=== PATIENT | female | born 1935 | race African-American/Black ===

== ENCOUNTER 2016-11-11 10:15 | Emergency (ER) | payer OTHER ==
[~2016-11-11] VITALS: Ht 157.5 cm; Wt 74.8 kg
--- NOTE | ~2016-11-11 | EKG ---
[address] [place] [address] ELECTROCARDIOGRAM REPORT Name: NUBIA RAMIREZ Room #: [facility]#: [id number] Admission: 11/11/16 Attend Phys: Discharge: 11/11/16 Date of : 37 Report #: [id number] THIS REPORT FOR: //name// [facility] ED Test Date: 2016-11-11 Test Time: 11:22:53 Pat Name: NUBIA RAMIREZ Department: Room: Gender: [employer] Supervisor: Patricia GOODWIN : 1935 Requested By: Hannah Zepeda Order Number: [id number] MD: Mihai Irizarry Measurements Intervals [place] Rate: 69 P: 0 NM: 163 QRS: -16 QRSD: 84 T: 15 QT: 429 QTc: 460 Interpretive Statements Sinus rhythm Atrial premature complexes Compared to ECG 07/27/2016 15:11:53 No significant change was Electronically Signed On 11-12-2016 7:45:54 CDT by Mihai Irizarry [email or web address] <ELECTRONICALLY SIGNED> By: Mihia Irizarry MD, [facility] 11/12/16 0745 [id number] 21 Mihai Irizarry MD, FACC /EPI
[~2016-11-11 10:15] MED LIST: ALLEGRA ALLERG180 MG PO; ARICEPT 5 MG TAB5 MG; ASPIRIN EC81 M1; GLUCOPHAGE500 MG PO; HYZAAR 50-12.51 TAB PO; LEVOTHYROXINE0.05 MG PO; LISINOPRIL-HCT1 EAC1 PO; NAMENDA 5 MG TAB5 M1 PO; SIMVASTATIN20 MG PO; VITAMIN D 5050000 I1 PO; XALATAN2.5 ML OPHTHALMIC
[2016-11-11 11:50] LABS: HEMATOCRIT 34.3 % (37.0-47.0); HEMOGLOBIN 11.2 gm/dL (12.0-15.0); MCH 26.9 pg (26.0-34.0); MCHC 32.8 g/dL (28.0-37.0); MCV 82.1 fL (80.0-100.0); PLATELET COUNT 248 thou/uL (150-400); RBC 4.17 mil/uL (4.20-5.00); RDW 14.3 % (10.5-14.5); WBC 4.5 thou/uL (4.0-11.0)
[2016-11-11 11:51] LABS: MANUAL DIFF YES
[2016-11-11 12:02] LABS: ANION GAP 4 mmol/L (7-16); BUN 9 mg/dL (7-18); CALCIUM 9.1 mg/dL (8.5-10.1); CHLORIDE 108 mmol/L (98-107); CO2 30 mmol/L (21-32); CREATININE 0.9 mg/dL (0.6-1.3); GLUCOSE 113 mg/dL (70-99); POTASSIUM 3.9 mmol/L (3.5-5.1); SODIUM 142 mmol/L (136-145)
[2016-11-11 12:08] LABS: ALBUMIN 3.2 g/dL (3.4-5.0); ALKALINE PHOSPHATASE 58 U/L (46-116); SGOT 22 U/L (15-37); SGPT 26 U/L (30-65); TOTAL BILIRUBIN 0.8 mg/dL (<0.1-1.0); TOTAL PROTEIN 7.2 g/dL (6.4-8.2); TROPONIN-I < 0.04 ng/mL (<0.04-0.07)
[2016-11-11 12:16] LABS: URINE BILIRUBIN NEGATIVE (Negative); URINE BLOOD NEGATIVE (Negative); URINE COLOR YELLOW; URINE GLUCOSE-RANDOM* NEGATIVE (Negative); URINE KETONES NEGATIVE (Negative); URINE NITRITE NEGATIVE (Negative); URINE PROTEIN (DIPSTICK) NEGATIVE (Negative); URINE UROBILINOGEN 0.2 E.U./dl (0.2-1.0)
[2016-11-11 12:25] LABS: ABSOLUTE NEUTROPHILS 2.7 thou/uL (1.4-8.2); TOTAL CELL COUNT 100
[2016-11-11 13:10] VITALS: BP 122/75
[2016-11-11] MEDS ORDERED: PROBIOTIC1 EAC1 PO (13:12)
== END 2016-11-11 13:27 | disposition home or self-care (01) ==
LOC: ER 10:15
PROVIDERS: Nurse Practitioner Family
DX: K59.00 Constipation, unspecified (principal); E11.9 Type 2 diabetes mellitus without complications; I10 Essential (primary) hypertension; G30.0 Alzheimer's disease with early onset; F02.80 Dementia in other diseases classified elsewhere, unspecified severity, without behavioral disturbance, psychotic disturbance, mood disturbance, and anxiety